=== PATIENT | male | born 1945 | race Two or more races ===

== ENCOUNTER 2021-01-07 16:48 | Inpatient (IN) | payer MEDICARE, MEDICAID ==
[~2021-01-07] VITALS: Ht 185.4 cm; Wt 94.9 kg
[2021-01-07] MEDS ORDERED: ASPIRIN 325MG EC TABLET PO ONE (17:45)
[2021-01-07] MEDS ORDERED: LORAZEPAM 1MG TABLET PO ONE (17:45)
[2021-01-07 17:46] LABS: BASOPHILS % 0.6 % (0.0-2.0); EOSINOPHILS % 1.5 % (0.0-5.0); HEMATOCRIT. 43.3 % (42.0-52.0); HEMOGLOBIN. 14.9 g/dL (14.0-18.0); LYMPHOCYTES % 33.2 % (20.0-50.0); MEAN CORPUSCULAR HEMOGLOBIN 32.6 pg (28.0-32.0); MEAN CORPUSCULAR VOLUME 94.9 fL (80.0-94.0); MEAN PLATELET VOLUME 10.5 fl (7.4-10.4); MONOCYTES % 7.9 % (2.0-8.0); NEUTROPHILS % 56.8 % (40.0-76.0); PLATELET 119 x1000/uL (130-400); RED BLOOD CELL COUNT 4.57 mill/uL (4.7-6.1); RED CELL DISTRIBUTION WIDTH 13.3 % (11.6-14.6)
[2021-01-07 17:48] LABS: CHLORIDE 108 mEq/L (98-107)
[2021-01-07] MEDS ORDERED: MORPHINE SULFATE 2 MG/ML CPJ (NOT FOR IM USE) IV PRN (23:00)
[2021-01-08] VITALS: BP_SYST 132; BP_SYST 162; BP_DIAS 81; BP_DIAS 85
[2021-01-08] MEDS ORDERED: METO1TAB26 MT (01:56)
[2021-01-08] MEDS ORDERED: SACU1TAB MT (01:56)
[2021-01-08] MEDS ORDERED: APIX5TAB PO ×2 (01:56→18:16)
[2021-01-08] MEDS ORDERED: ALPR1TAB2 PO (01:59)
[2021-01-08 04:00] VITALS: BP 123/94
[2021-01-08] MEDS: ALPRAZOLAM 0.5 MG TABLET PO PRN ×3 (05:08→22:59)
[2021-01-08 08:00] VITALS: BP 144/92
[2021-01-08] MEDS: APIXABAN 5 MG TABLET PO SCH ×2 (09:07→18:27)
[2021-01-08] MEDS: ASPIRIN 81MG TABLET PO SCH (09:07)
[2021-01-08] MEDS: FUROSEMIDE 40MG TABLET PO SCH ×2 (09:07→20:18)
[2021-01-08] MEDS: CARVEDILOL 6.25 MG TABLET PO SCH ×2 (09:08→20:18)
[2021-01-08 12:00] VITALS: BP 136/77
[2021-01-08] MEDS: OMEPRAZOLE 20MG CAPSULE EXTENDED RELEASE PO SCH ×2 (13:51→20:19)
[2021-01-08 16:00] VITALS: BP 120/84
[2021-01-08] MEDS ORDERED: ALPR-341 PO (18:16)
[2021-01-08] MEDS: ACETAMINOPHEN 325MG TABLET PO PRN (18:27)
[2021-01-08 20:00] VITALS: BP 127/89
[2021-01-09] VITALS: BP 121/82
[2021-01-09 04:00] VITALS: BP 126/81
[2021-01-09] MEDS: OMEPRAZOLE 20MG CAPSULE EXTENDED RELEASE PO SCH (05:21)
[2021-01-09] MEDS: ACETAMINOPHEN 325MG TABLET PO PRN (05:24)
[2021-01-09 07:28] LABS: BASOPHILS % 0.4 % (0.0-2.0); EOSINOPHILS % 2.8 % (0.0-5.0); HEMOGLOBIN. 14.7 g/dL (14.0-18.0); LYMPHOCYTES % 22.4 % (20.0-50.0); MEAN CORPUSCULAR HEMOGLOBIN 32.9 pg (28.0-32.0); MEAN PLATELET VOLUME 10.7 fl (7.4-10.4); MONOCYTES % 7.8 % (2.0-8.0); NEUTROPHILS % 66.6 % (40.0-76.0); PLATELET 101 x1000/uL (130-400); RED BLOOD CELL COUNT 4.48 mill/uL (4.7-6.1); RED CELL DISTRIBUTION WIDTH 13.6 % (11.6-14.6)
[2021-01-09 07:33] LABS: CHLORIDE 106 mEq/L (98-107)
[2021-01-09 08:30] VITALS: BP 124/89
[2021-01-09] MEDS: ASPIRIN 81MG TABLET PO SCH (09:11)
[2021-01-09] MEDS: APIXABAN 5 MG TABLET PO SCH (09:11)
[2021-01-09] MEDS: FUROSEMIDE 40MG TABLET PO SCH (09:11)
[2021-01-09] MEDS: CARVEDILOL 6.25 MG TABLET PO SCH (09:12)
[2021-01-09 10:50] VITALS: BP 124/89
== END 2021-01-09 11:16 | disposition home health service (06) | DRG 391 ==
LOC: ER 16:48 → EDBD 16:48 → 8WST 19:39 → EDBEDREQ 19:40 → EDBEDREQTM 19:40 → ENRESERV 20:01
PROVIDERS: ADMIT Internal Medicine; ATTEND Internal Medicine
DX: K21.9 Gastro-esophageal reflux disease without esophagitis (principal); I50.23 Acute on chronic systolic (congestive) heart failure; I42.0 Dilated cardiomyopathy; I48.20 Chronic atrial fibrillation, unspecified; R07.89 Other chest pain; E87.8 Other disorders of electrolyte and fluid balance, not elsewhere classified; F12.10 Cannabis abuse, uncomplicated; Z20.822 Contact with and (suspected) exposure to COVID-19; H91.90 Unspecified hearing loss, unspecified ear; I11.0 Hypertensive heart disease with heart failure; I25.10 Atherosclerotic heart disease of native coronary artery without angina pectoris; F41.9 Anxiety disorder, unspecified; I34.0 Nonrheumatic mitral (valve) insufficiency; K29.70 Gastritis, unspecified, without bleeding; Z79.01 Long term (current) use of anticoagulants; Z87.891 Personal history of nicotine dependence; Z95.810 Presence of automatic (implantable) cardiac defibrillator; Z88.0 Allergy status to penicillin
CPT/HCPCS: 36415; 71045; 80048; 80053; 83735; 83880; 84484; 85025; 87426; 93005; 93306; 99285; J2270